=== PATIENT | male | born 1935 | race Caucasian/White ===

== ENCOUNTER 2023-09-29 08:12 | Emergency (ER) | payer OTHER ==
[~2023-09-29] VITALS: Ht 167.6 cm; Wt 81.6 kg
[2023-09-29 10:46] VITALS: BP 126/88; TEMP 97.6; O2SAT 97
== END 2023-09-29 10:47 | disposition home or self-care (01) ==
LOC: ER 08:12
DX: T83.091A Other mechanical complication of indwelling urethral catheter, initial encounter (principal)
CPT/HCPCS: 99283; J7030; J7040

== ENCOUNTER 2023-10-08 12:03 | Emergency (ER) | payer OTHER ==
[~2023-10-08] VITALS: Ht 154.9 cm; Wt 82.1 kg
[2023-10-08 13:14] LABS: BASOPHILS % (AUTO) 0.7 % (0.0-2.0); EOSINOPHILS % (AUTO) 0.1 % (0.0-6.0); HEMATOCRIT 37 % (39-51); HEMOGLOBIN 12.6 g/dL (13.5-17.5); LYMPHOCYTES # (AUTO) 0.8 K/uL (0.8-4.8); LYMPHOCYTES % (AUTO) 16.6 % (20.0-44.0); MEAN CORPUSCULAR HEMOGLOBIN 32 PG (26.0-33.0); MEAN CORPUSCULAR HGB CONC 34 g/dl (31.0-36.0); MEAN CORPUSCULAR VOLUME 96 fL (80-96); MONOCYTES % (AUTO) 19.5 % (2.0-12.0); NEUTROPHILS # (AUTO) 3.2 K/uL (1.8-8.9); NEUTROPHILS % (AUTO) 63.1 % (43.0-81.0); PLATELET COUNT (AUTO) 189 K/uL (150-450); RED CELL DISTRIBUTION WIDTH 13.1 % (11.5-15.0)
[2023-10-08 13:35] LABS: INR 1.49 (0.91-1.10); PARTIAL THROMBOPLASTIN TIME 42.6 SEC (24.3-34.3); PROTHROMBIN TIME 15.4 SECS (9.2-11.1)
[2023-10-08 13:43] LABS: SERUM AMMONIA 15 umol/L (11-32)
[2023-10-08 13:50] LABS: ALANINE AMINOTRANSFERASE 16 U/L (12-78); ALBUMIN 3.3 g/dL (3.4-5.0); ALKALINE PHOSPHATASE 80 U/L (46-116); ASPARTATE AMINOTRANSFERASE 22 U/L (15-37); BILIRUBIN,DIRECT 0.2 mg/dL (0.0-0.2); BILIRUBIN,TOTAL 0.8 mg/dL (0.2-1.0); CARBON DIOXIDE 25 mmol/L (21-32); CHLORIDE 96 mmol/L (98-107); GLUCOSE 102 mg/dL (74-106); POTASSIUM 4.2 mmol/L (3.5-5.1); SODIUM SERUM 130 mmol/L (136-145); TOTAL PROTEIN, SERUM 7.1 g/dL (6.4-8.2); UREA NITROGEN, BLOOD 33 mg/dL (7-18)
[2023-10-08 13:50] LABS: APPEARANCE,URINE TURBID (CLEAR); BILIRUBIN,URINE NEGATIVE (NEGATIVE); BLOOD, URINE 2+ Ery/uL (NEGATIVE); COLOR,URINE DARK YELLOW (YELLOW); KETONES,URINE NEGATIVE (NEGATIVE); LEUKOCYTE ESTERASE ,URINE 3+ (NEGATIVE); NITRITE, URINE POSITIVE (NEGATIVE); PROTEIN,URINE 2+ mg/dl (NEGATIVE); UGLUCOSE NEGATIVE (NEGATIVE)
[2023-10-08 13:52] LABS: ACETAMINOPHEN 0 ug/ml (10-30); ALCOHOL, BLOOD < 3 mg/dL (0-10); SALICYLATE < 0.2 mg/dL (2.8-20.0)
[2023-10-08 13:57] LABS: THYROID STIMULATING HORMONE 3.378 uIU/mL (0.358-3.74)
[2023-10-08 14:03] LABS: CREATININE 1.7 mg/dL (0.6-1.3)
[2023-10-08 14:06] LABS: ADD URINE CULTURE YES; AMPHETAMINE, URINE NEGATIVE (NEGATIVE); BACTERIA,URINE Few /HPF (None Seen); BARBITURATE, URINE NEGATIVE (NEGATIVE); BENZODIAZEPINE, URINE NEGATIVE (NEGATIVE); CANNABINOID, URINE NEGATIVE (NEGATIVE); COCCAINE, URINE NEGATIVE (NEGATIVE); OPIATE, URINE NEGATIVE (NEGATIVE); PHENCYCLIDINE SCREEN,URINE NEGATIVE (NEGATIVE); SQUAMOUS EPITHELIAL CELL,UR Moderate /HPF (None Seen); TRIPLE PHOSPHATE CRYSTAL,UR Many /HPF (None Seen)
[2023-10-08 14:14] LABS: MAGNESIUM 2.3 mg/dL (1.8-2.4)
[2023-10-08] MEDS ORDERED: CIPROFLOXACIN IV RTU 400 MG in PREMIX 1 EA IV SCH (14:30)
[2023-10-08] MEDS ORDERED: CIPR500T5 PO (15:01)
[2023-10-08 15:09] VITALS: BP 110/65; TEMP 98.4; O2SAT 97
[2023-10-08 15:29] LABS: LYMPHOCYTES % (MANUAL) 15 % (16-48); MONOCYTES % (MANUAL) 18 % (0-11.0); NEUTROPHILS % (MANUAL) 67 (42-76)
[2023-10-08 15:30] LABS: PLATELET ESTIMATE ADEQUATE
== END 2023-10-08 15:45 | disposition home or self-care (01) ==
LOC: ER 12:08
DX: N39.0 Urinary tract infection, site not specified (principal); R53.1 Weakness; N40.0 Benign prostatic hyperplasia without lower urinary tract symptoms; Z79.899 Other long term (current) drug therapy
CPT/HCPCS: 36415; 71045-TC; 80048-TC; 80076-TC; 81001; 82140-TC; 83735-TC; 83880; 84443-TC; 84484-TC; 85025-TC; 85730-TC; 87086-TC; G0480